=== PATIENT | male | born 1990 | race Caucasian/White ===

== ENCOUNTER 2021-06-09 19:02 | Emergency (ER) | payer OTHER ==
[~2021-06-09] VITALS: Ht 167.6 cm; Wt 59.0 kg
[~2021-06-09 19:02] MED LIST: AMOX50SU PO; CEPH250A PO; DIPH12.5EL PO; METO10 PO; RXANTBENOT AD
== END 2021-06-09 22:40 | disposition home or self-care (01) ==
LOC: ER 19:02
DX: S93.401A Sprain of unspecified ligament of right ankle, initial encounter (principal); R51.9 Headache, unspecified; W10.9XXA Fall (on) (from) unspecified stairs and steps, initial encounter; Y92.9 Unspecified place or not applicable
CPT/HCPCS: 36415; 70450; 73610; A9270; J1885; J2405

== ENCOUNTER → 2021-12-30 | Outpatient (CLI) | payer OTHER | LOC: LAB SHORT 07:39 → LAB 07:39 | DX: R21 Rash and other nonspecific skin eruption (principal) | CPT/HCPCS: 88312 ==